=== PATIENT | female | born 1945 | race Caucasian/White ===

== ENCOUNTER 2018-02-05 16:30 | Observation (INO) ==
[2018-02-05] MEDS ORDERED: Orphenadrine Inj 60 MG/2 ML Ampul IM ONE (17:12)
[2018-02-05] MEDS ORDERED: Lidocaine 5% Patch T-DERMAL ONE (17:12)
--- NOTE | 2018-02-05 17:18 | ED ---
HPI General Chief Complaint: Back Pain/Injury Stated Complaint: Back Pain Time Seen by Provider: 02/05/18 16:54 Source: patient Mode of arrival: ambulatory Limitations: no limitations History of Present Illness HPI Narrative: Patient is a 33-year-old female, past medical history significant for kidney transplant in 2011, doing well since then, who presents with complaint of back pain for the last 3-4 days. She states that she has been packing and moving boxes and has noticed back pain to the middle and low back over that time that worsens with movement and twisting motions. She does not believe she has fallen but she is not sure. She denies any numbness, weakness, urinary retention, incontinence, constipation. She denies any recent invasive procedures or fevers. She denies any change in urination. Complaint: Reports back pain and back injury Onset (ago): day(s) Duration: Reports constant Location: Reports lumbar spine and thoracic spine Severity: moderate Quality: Reports aching Radiation: Reports right leg Relieving factors: none Exacerbating factors: movement Context: Reports while lifting and turning/twisting Associated symptoms: Reports denies other symptoms Treatments prior to arrival: Reports acetaminophen Related Data Home Medications Medication Instructions Recorded Confirmed cyclosporine 100 mg PO BID 02/05/18 02/05/18 Allergies Allergy/AdvReac Type Severity Reaction Status Date / Time morphine Allergy Severe Itching Unverified 12/18/16 00:19 Review of Systems ROS: all other systems reviewed are negative [facility] Medical History Medical History Femur fracture (Acute) Osteoarthritis (Acute) Surgical History Surgical History Kidney transplant recipient (Acute) Social History Social History Substance History: No History of Abuse Second Hand Smoke Exposure: No Smoking Status: Never smoker How Often Do You Have a Drink Containing Alcohol: Never Recent Travel in [facility] within the Last 8 Weeks: No Recent Out of Country Travel within the Last 8 Weeks: No Immunization History Tetanus Immunization: <5 Years Hx Influenza Vaccine This Season: Yes Exam Narrative Exam Narrative: GENERAL: Well-appearing female in no acute distress, able to move about the bed without much difficulty SKIN: Focused skin assessment warm/dry. No rashes nor erythema HEAD: Atraumatic. Normocephalic. EYES: Pupils equal and round. No scleral icterus. No injection or drainage. ENT: No nasal bleeding or discharge. Mucous membranes pink and moist. NECK: Trachea midline. No JVD. CARDIOVASCULAR: Regular rate and rhythm. No murmur appreciated. Intact and equal peripheral pulses. Normal cap refill. RESPIRATORY: No accessory muscle use. Clear to auscultation. Breath sounds equal bilaterally. GASTROINTESTINAL: Abdomen soft, non-tender, nondistended. Hepatic and splenic margins not palpable. MUSCULOSKELETAL: No clubbing. No cyanosis. No edema. Kyphoscoliosis present. Palpable muscle spasms along the R thoracic and lumbar spine which reproduce the pain. NEUROLOGICAL: Awake and alert. No obvious cranial nerve deficits. Motor within normal limits. Normal sensation. No ataxia. Normal speech. PSYCHIATRIC: Appropriate mood and affect; insight and judgment normal. Course Reevaluation(s) Reevaluation #1: Patient resting comfortably in the room, states she is feeling slightly better. Time: 20:12 Initial Documented Vital Signs Temperature 97.8 F 02/05/18 16:54 Pulse Rate 83 02/05/18 16:54 Respiratory Rate 18 02/05/18 16:54 Blood Pressure 112/63 02/05/18 16:54 Pulse Oximetry 95 02/05/18 16:54 Last Documented Vital Signs Temperature 97.8 F 02/05/18 16:54 Pulse Rate 53 L 02/05/18 20:57 Respiratory Rate 18 02/05/18 20:57 Blood Pressure 180/87 H 02/05/18 20:57 Pulse Oximetry 96 02/05/18 20:57 Medical Decision Making [facility] Narrative Medical decision making narrative: Patient is a 73-year-old female who presents with complaint of back pain going down her right leg not preceded by trauma and not midline. She is hemodynamically stable with normal vital signs. Labs reveal chronic kidney disease at baseline and no leukocytosis. UA concerning for infection for which she has been started on Keflex. She has been given multiple medications to try and help her pain. She will rest comfortably in the room and fall asleep but then when he try to get her up to walk her she refuses stating that the pain is too intense. CT unremarkable. X-ray of the hip is also unremarkable and does not show acute injury. Medical Screen Exam Complete: Yes Emergency Medical Condition: Yes Differential Diagnosis Differential Diagnosis: Differential diagnosis includes but is not limited to muscle spasm, fracture, strain. Medical Records Medical records reviewed: Yes I reviewed the patient's medical records. Lab Data Lab results reviewed: Yes I reviewed the patient's lab results. Result diagrams: 02/05/18 22:09 02/05/18 22:09 Lab Results 02/05/18 02/05/18 02/05/18 Range/Units 20:06 22:09 22:09 WBC 8.0 (4.0-11.0) th/mm3 RBC 3.65 L (4.00-5.30) mil/mm3 Hgb 10.6 L (11.6-15.3) gm/dL Hct 33.0 L (35.0-46.0) % MCV 90.4 (80.0-100.0) fL MCH 29.0 (27.0-34.0) pg MCHC 32.1 (32.0-36.0) % RDW 18.6 H (11.6-17.2) % Plt Count 233 (150-450) th/mm3 MPV 7.6 (7.0-11.0) fL Neut % (Auto) 72.4 H (16.0-70.0) % Lymph % (Auto) 16.6 (9.0-44.0) % [place] % (Auto) 9.0 H (0.0-8.0) % Eos % (Auto) 1.3 (0.0-4.0) % Baso % (Auto) 0.7 (0.0-2.0) % Neut # (Auto) 5.8 (1.8-7.7) th/mm3 Lymph # (Auto) 1.3 (1.0-4.8) th/mm3 [place] # (Auto) 0.7 (0.0-0.9) th/mm3 Eos # (Auto) 0.1 (0.0-0.4) th/mm3 Baso # (Auto) 0.1 (0.0-0.2) th/mm3 WBC Differential . Differential Comment Auto diff final Sodium 144 (136-145) meq/L Potassium 4.3 (3.5-5.1) meq/L Chloride 105 (98-107) meq/L Carbon Dioxide 28.6 (21.0-32.0) meq/L Anion Gap 10 (5-15) meq/L BUN 38 H (7-18) mg/dL Creatinine 1.42 H (0.50-1.00) mg/dL Estimated GFR 36 L (>89) mL/min Random Glucose 85 (74-106) mg/dL Calcium 10.0 (8.5-10.1) mg/dL Urine Color Yellow (Yellw/Straw) Urine Clarity Hazy H (Clear) Urine pH 5.0 (5.0-8.5) Ur Specific [place] 1.010 (1.002-1.035) Urine Protein Negative (Neg-Trace) mg/dL Urine Glucose (UA) Negative (Negative) mg/dL Urine Ketones Negative (Negative) mg/dL Urine Occult Blood Negative (Negative) Urine Nitrate Negative (Negative) Urine Bilirubin Negative (Negative) Urine Urobilinogen Less than 2 (Less than 2) mg/dL Ur Leukocyte Esterase Small H (Negative) Urine WBC 13 H (0-5) /hpf Ur Squamous Epith Cells <1 (0-5) /hpf Urine Bacteria Rare H (None) /hpf Micro UA Comment Culture indicated Ur Microscopic Review Not Reportable Urine Culture Comments Culture indicated Imaging Data Radiologist's impression: Lumbar Spine CT 02/05/18 17:12 CONCLUSION: 1. No acute fracture or subluxation of the lumbar spine. 2. Mild to moderate, chronic compression deformity of L3 vertebral body. 3. Broad right paracentral/foraminal protrusion with moderate right foraminal stenosis at L3/L4. 4. Mild bilateral foraminal stenosis at L4/L5 and L5/S1. 5. No significant spinal stenosis demonstrated. Thoracic Spine CT 02/05/18 17:12 CONCLUSION: 1. Intact cervical spine. 2. Scoliosis and mild disc centered degenerative changes as above. No high- grade foraminal or spinal stenosis present. Hip X-Ray 02/05/18 21:22 CONCLUSION: 1. No acute abnormality seen of the right hip. 2. Previous nail and rodding of the right femur. Healed proximal shaft fracture. Discharge Plan Physicians Team ED Provider: Connie Reaves Primary Care Provider: Maine Li Rxs /Orders / Referrals /Forms Prescriptions: No Action cyclosporine 100 mg Capsule 100 mg PO BID RF: 0 Discharge Interventions Interventions: Vital Signs Last Done: 02/05/18 20:57 Status ED Status: With Doctor
--- NOTE | 2018-02-05 19:20 | CT ---
EXAM DATE: 02/05/2018 5:21 PM EDT AGE/SEX: 73 years / Female INDICATIONS: Back pain right leg pain CLINICAL DATA: This is the patient's initial encounter. Patient reports that signs and symptoms have been present for 1 day and indicates a pain score of 5/10. MEDICAL/SURGICAL HISTORY: Renal disease. . Kidney transplant orthopedic RADIATION DOSE: 35.24 CTDI (mGy) ; Combined studies COMPARISON: C, CT LUMBAR SPINE W/O CONTRAST, 02/05/2018. . TECHNIQUE: Contiguous axial images were acquired using a multirow detector CT scanner without contra st. Multiplanar reconstruction in the sagittal and coronal planes was performed. Using automated exp osure control and adjustment of the mA and/or kV according to patient size, radiation dose was kept a s low as reasonably achievable to obtain optimal diagnostic quality images. DICOM format image data is available electronically for review and comparison. FINDINGS: There is moderate severity S shaped thoracolumbar curvature. The thoracic portion of the curvature is dextroconvex and centered around T6/T7. There is associated mild foraminal stenosis on the left, inf erior portion of the curvature at T5/T6, T6/T7 and T7/T8. There are no fractures or subluxations. Minimal disc space narrowing with very mild anterior and late ral osseous ridging seen at essentially all levels. CONCLUSION: 1. Intact cervical spine. 2. Scoliosis and mild disc centered degenerative changes as above. No high-grade foraminal or spinal stenosis present. Electronically signed by: Santiago Hernandes MD 02/05/2018 7:19 PM EDT
--- NOTE | 2018-02-05 19:24 | CT ---
EXAM DATE: 02/05/2018 5:21 PM EDT AGE/SEX: 73 years / Female INDICATIONS: Lower back pain right leg pain CLINICAL DATA: This is the patient's initial encounter. Patient reports that signs and symptoms have been present for 1 day and indicates a pain score of 5/10. MEDICAL/SURGICAL HISTORY: Renal disease. . Kidney transplant RADIATION DOSE: 35.24 CTDI (mGy) ; Combined studies COMPARISON: No prior exams available for comparison. TECHNIQUE: Contiguous axial images were acquired with a multirow detector CT scanner without contras t. Multiplanar reconstructions in the sagittal and coronal plane were also performed. Using automate d exposure control and adjustment of the mA and/or kV according to patient size, radiation dose was k ept as low as reasonably achievable to obtain optimal diagnostic quality images. DICOM format image data is available electronically for review and comparison. FINDINGS: There is moderate S shaped thoracolumbar curvature. The lumbar portion of the curvature is levoconvex and centered around L3/L4. There is mild to moderate, chronic inferior endplate and cavity/loss of h eight of the L3 vertebral body. No acute fracture is demonstrated. There is no subluxation. There is mild bilateral facet osteoarthritis at L3/L4 and L4/L5. Moderate bilateral facet osteoarthri tis at L5/S1. Small to moderate, broad right paracentral/foraminal disc protrusion seen at L3/L4 and causes moderat e right foraminal stenosis. There are small, broad posterior disc protrusions at both L4/L5 and L5/S1 causing mild bilateral fora arti stenosis. No significant spinal stenosis demonstrated. CONCLUSION: 1. No acute fracture or subluxation of the lumbar spine. 2. Mild to moderate, chronic compression deformity of L3 vertebral body. 3. Broad right paracentral/foraminal protrusion with moderate right foraminal stenosis at L3/L4. 4. Mild bilateral foraminal stenosis at L4/L5 and L5/S1. 5. No significant spinal stenosis demonstrated. Electronically signed by: Santiago Hernandes MD 02/05/2018 7:23 PM EDT
[2018-02-05] MEDS ORDERED: Acetaminophen 325 MG Tablet PO ONE (20:12)
[2018-02-05 20:31] LABS: Bacteria,Urine Rare /hpf; Bilirubin,Urine Negative (Negative); Clarity,Urine Hazy (Clear); Color,Urine Yellow (Yellw/Straw); Glucose,Urine (UA) Negative (Negative); Leukocyte Esterase,Urine Small (Negative); Nitrite,Urine Negative (Negative); Squamous Epithelial Cell,Urine <1 /hpf (0-5)
[2018-02-05] MEDS ORDERED: Gabapentin 100 MG Capsule PO ONE (21:23)
--- NOTE | 2018-02-05 21:54 | XR ---
EXAM DATE: 02/05/2018 9:22 PM EDT AGE/SEX: 73 years / Female INDICATIONS: Right hip pain with no known injury. CLINICAL DATA: This is the patient's initial encounter. Patient reports that signs and symptoms have been present for 1 week and indicates a pain score of 7/10. MEDICAL/SURGICAL HISTORY: None. . ORIF right hip. COMPARISON: [facility] [place] (1 VW[place] 07/16/2011. . FINDINGS: There is no acute fracture or subluxation of the right hip. No significant joint space narrowing. No acute soft tissue abnormality demonstrated. Patient is status post proximal femoral nailing and rodding. There is a proximal shaft fracture which is solidly healed in near-anatomic alignment. CONCLUSION: 1. No acute abnormality seen of the right hip. 2. Previous nail and rodding of the right femur. Healed proximal shaft fracture. Electronically signed by: Santiago Hernandes MD 02/05/2018 9:52 PM EDT
[2018-02-05 22:31] LABS: Baso # (Auto) 0.1 th/mm3 (0.0-0.2); Baso % (Auto) 0.7 % (0.0-2.0); Eos # (Auto) 0.1 th/mm3 (0.0-0.4); Eos % (Auto) 1.3 % (0.0-4.0); Hemoglobin 10.6 gm/dL (11.6-15.3); Lymph # (Auto) 1.3 th/mm3 (1.0-4.8); Lymph % (Auto) 16.6 % (9.0-44.0); Mean Corpuscular HGB Conc 32.1 % (32.0-36.0); Mean Corpuscular Volume 90.4 fL (80.0-100.0); Mean Platelet Volume 7.6 fL (7.0-11.0); Mono # (Auto) 0.7 th/mm3 (0.0-0.9); Neut # (Auto) 5.8 th/mm3 (1.8-7.7); Neut % (Auto) 72.4 % (16.0-70.0); Platelet Count 233 th/mm3 (150-450); Red Blood Count 3.65 mil/mm3 (4.00-5.30); Red Cell Distribution Width 18.6 % (11.6-17.2)
[2018-02-05 22:47] LABS: Carbon Dioxide 28.6 meq/L (21.0-32.0); Potassium 4.3 meq/L (3.5-5.1)
[2018-02-05] MEDS ORDERED: fentaNYL Citrate Inj 100 MCG/2 ML Ampul IV.PUSH ONE (23:07)
[2018-02-06] MEDS ORDERED: Bisacodyl 10 MG Supp RECTAL PRN (00:03)
[2018-02-06] MEDS ORDERED: Acetaminophen 325 MG Tablet PO PRN (00:03)
--- NOTE | 2018-02-06 00:11 | P.HP ---
History of Present Illness Service: [facility] Primary Care Physician: Maine Li MD History of Present Illness: 73-year-old female with a past medical history significant for chronic kidney disease, history of renal transplant, hypertension and hyperlipidemia presents to the emergency department for evaluation of back pain. The patient reports that she has been moving from her current residence and has been packing boxes and lifting and carrying heavy objects. She states she has had severe lower back pain that has worsened to the point where she cannot bear weight on her right leg. She is able to move her extremities without difficulty and has 5/5 strength throughout in the bilateral lower extremities. She denies any bowel or bladder incontinence. No chest pain or shortness of breath. No abdominal pain. No nausea/vomiting/diarrhea. No lateralizing signs/symptoms other than pain. No fever/chills. Review of Systems All other systems reviewed negative except as stated in HPI [facility] - History History Provided By: Patient - Medical History Medical History: Medical History (Last Updated 02/06/18 @ 00:08 by Pamela Scott MD) Femur fracture Hyperlipidemia Hypertension Osteoarthritis - Surgical History Surgical History: Surgical History (Last Reviewed 02/06/18 @ 00:08 by Pamela Scott MD) Kidney transplant recipient - Family History Family History: Family History (Last Updated 02/06/18 @ 00:09 by Pamela Scott MD) Other Family history normal - Tobacco History Second Hand Smoke Exposure: No Smoking Status: Never smoker - Alcohol History How Often Do You Have a Drink Containing Alcohol: Never - Substance Use History Substance History: No History of Abuse - Travel History Recent Travel in the [place] Within the Last 8 Weeks: No Recent Travel Out of the Country Within the Last 8 Weeks: No - Immunization History Tetanus Immunization: <5 Years Hx Influenza Vaccine This Season: Yes Medications and Allergies Active Medications: Active Medications Acetaminophen (Tylenol) 650 mg PO Q4H PRN PRN Reason: Temp > 100.4 Al Hydroxide/Mg Hydroxide (Milk Of Magnesia Liq) 30 ml PO Q12H PRN PRN Reason: Mild Constipation Bisacodyl (Dulcolax Supp) 10 mg RECTAL DAILY PRN PRN Reason: SEVERE CONSITIPATION Heparin Sodium (Porcine) (Heparin Inj) 5,000 units SQ Q8H KERLINE Ketorolac Tromethamine (Toradol Inj) 15 mg IV.PUSH Q6H PRN PRN Reason: pain 6-10 Lactulose (Lactulose Liq) 30 ml PO DAILY PRN PRN Reason: SEVERE CONSITIPATION Nitrofurantoin Macrocrystals (Macrobid) 100 mg PO BIDPC KERLINE Ondansetron HCl (Zofran Inj) 4 mg IV.PUSH Q6H PRN PRN Reason: NAUSEA OR VOMITING Patch Removal (Remove Old Patch) 1 each T-DERMAL HS KERLINE Last Admin: 02/05/18 23:16 Dose: Not Given Senna/Docusate Sodium (Elvia-Colace) 1 tab PO BID [facility] Sennosides (Senokot) 17.2 mg PO Q12H PRN PRN Reason: Moderate Constipation Allergies Allergy/AdvReac Type Severity Reaction Status Date / Time morphine Allergy Severe Itching Unverified 12/18/16 00:19 Home Medications Medication Instructions Recorded Confirmed Type cyclosporine 100 mg PO BID 02/05/18 02/05/18 History prednisone 2.5 mg PO DAILY 02/05/18 02/05/18 History Exam Vital signs: Vital Signs 02/05/18 16:54 02/05/18 20:57 02/05/18 23:48 Temperature 97.8 F Pulse Rate 83 53 L 74 Respiratory Rate 18 18 18 Blood Pressure 112/63 180/87 H 177/82 H Pulse Oximetry 95 96 96 Intake & Output 02/05/18 02/05/18 02/06/18 06:59 18:59 06:59 Weight 72.575 kg Narrative: Gen.: No acute distress Head: Normocephalic. Atraumatic. EENT: Pupils equal round and reactive to light. Nose without drainage. Airway intact. Throat without injection. Cardiovascular: Regular rate and rhythm. No murmurs, rubs or gallops. Respiratory: Lungs clear to auscultation bilaterally. No wheezes or rhonchi. Abdomen: Soft, nontender, nondistended. No peritoneal signs. Musculoskeletal: No gross deformities. No edema. Skin: No obvious rashes or erythema. Neuro: Sensory and motor grossly intact. Cranial nerves II through XII grossly intact. 5/5 bilateral lower extremity strength while lying in bed however patient refuses to stand secondary to pain. Results - Labs CBC & Chem 7: 02/05/18 22:09 02/05/18 22:09 Labs: Laboratory Results - last 24 hr 02/05/18 02/05/18 02/05/18 20:06 22:09 22:09 WBC 8.0 RBC 3.65 L Hgb 10.6 L Hct 33.0 L MCV 90.4 MCH 29.0 MCHC 32.1 RDW 18.6 H Plt Count 233 MPV 7.6 Neut % (Auto) 72.4 H Lymph % (Auto) 16.6 [place] % (Auto) 9.0 H Eos % (Auto) 1.3 Baso % (Auto) 0.7 Neut # (Auto) 5.8 Lymph # (Auto) 1.3 [place] # (Auto) 0.7 Eos # (Auto) 0.1 Baso # (Auto) 0.1 WBC Differential . Differential Comment Auto diff final Sodium 144 Potassium 4.3 Chloride 105 Carbon Dioxide 28.6 Anion Gap 10 BUN 38 H Creatinine 1.42 H Estimated GFR 36 L Random Glucose 85 Calcium 10.0 Urine Color Yellow Urine Clarity Hazy H Urine pH 5.0 Ur Specific [place] 1.010 Urine Protein Negative Urine Glucose (UA) Negative Urine Ketones Negative Urine Occult Blood Negative Urine Nitrate Negative Urine Bilirubin Negative Urine Urobilinogen Less than 2 Ur Leukocyte Esterase Small H Urine WBC 13 H Ur Squamous Epith Cells <1 Urine Bacteria Rare H Micro UA Comment Culture indicated Ur Microscopic Review Not Reportable Urine Culture Comments Culture indicated - Imaging Impressions Lumbar Spine CT 02/05/18 17:12 CONCLUSION: 1. No acute fracture or subluxation of the lumbar spine. 2. Mild to moderate, chronic compression deformity of L3 vertebral body. 3. Broad right paracentral/foraminal protrusion with moderate right foraminal stenosis at L3/L4. 4. Mild bilateral foraminal stenosis at L4/L5 and L5/S1. 5. No significant spinal stenosis demonstrated. Thoracic Spine CT 02/05/18 17:12 CONCLUSION: 1. Intact cervical spine. 2. Scoliosis and mild disc centered degenerative changes as above. No high- grade foraminal or spinal stenosis present. Hip X-Ray 02/05/18 21:22 CONCLUSION: 1. No acute abnormality seen of the right hip. 2. Previous nail and rodding of the right femur. Healed proximal shaft fracture. Caprini VTE Risk Assessment Caprini VTE Risk Assessment: Moderate/High Risk (score >= 2) Caprini Risk Assessment Model: Point Value = 1 Point Value = 2 Point Value = 3 Point Value = 5 Age 41-60 Minor surgery BMI > 25 kg/m2 Swollen legs Varicose veins or History of unexplained or recurrent spontaneous Oral contraceptives or hormone replacement Sepsis (< 1 month) Serious lung disease, including pneumonia (< 1 month) Abnormal pulmonary function Acute myocardial infarction Congestive heart failure (< 1 month) History of inflammatory bowel disease Medical patient at bed rest Age 61-74 Arthroscopic surgery Major open surgery (> 45 min) Laparoscopic surgery (> 45 min) Malignancy Confined to bed (> 72 hours) Immobilizing plaster cast Central venous access Age >= 75 History of VTE Family history of VTE Factor V Leiden Prothrombin [id number] Lupus anticoagulant Anticardiolipin antibodies Elevated serum homocysteine Heparin-induced thrombocytopenia Other congenital or acquired thrombophilia Stroke (< 1 month) Elective arthroplasty Hip, pelvis, or leg fracture Acute spinal cord injury (< 1 month) Prophylaxis Regimen: Total Risk Factor Score Risk Level Prophylaxis Regimen 0-1 Low Early ambulation 2 Moderate Order ONE of the following: *Sequential Compression Device (SCD) *Heparin 5000 units SQ BID 3-4 Higher Order ONE of the following medications: *Heparin 5000 units SQ TID *Enoxaparin/Lovenox 40 mg SQ daily (WT < 150 kg, CrCl > 30 mL/min) *Enoxaparin/Lovenox 30 mg SQ daily (WT < 150 kg, CrCl > 10-29 mL/min) *Enoxaparin/Lovenox 30 mg SQ BID (WT < 150 kg, CrCl > 30 mL/min) AND/OR *Sequential Compression Device (SCD) 5 or more Highest Order ONE of the following medications: *Heparin 5000 units SQ TID (Preferred with Epidurals) *Enoxaparin/Lovenox 40 mg SQ daily (WT < 150 kg, CrCl > 30 mL/min) *Enoxaparin/Lovenox 30 mg SQ daily (WT < 150 kg, CrCl > 10-29 mL/min) *Enoxaparin/Lovenox 30 mg SQ BID (WT < 150 kg, CrCl > 30 mL/min) AND *Sequential Compression Device (SCD) Assessment and Plan - Plan Assessment/plan: 1. Back pain Suspect secondary to overuse from moving Toradol Physical therapy consulted CT of the lumbar and thoracic spine without acute process 2. Urinary tract infection Macrobid 3. Chronic kidney disease Creatinine 1.42, baseline 4. History of renal transplantation Continue home immunosuppression 5. Hypertension/hyperlipidemia Continue home medications once reconciled FEN Heart healthy diet Electrolytes: Monitor and replete as needed Heparin
[2018-02-06] MEDS: Heparin - SQ 10,000 UNITS/ML Vial SQ SCH ×3 (01:43→15:38)
[2018-02-06] MEDS: Nitrofurantoin Monohydrate-Macrocrystal 100 MG Capsule PO SCH ×3 (01:43→18:14)
[2018-02-06] MEDS: Ketorolac Inj 30 MG/ML (IVP) Vial IV.PUSH PRN ×3 (03:23→15:37)
[2018-02-06] MEDS: predniSONE 5 MG Tablet PO SCH (09:29)
[2018-02-06] MEDS: Senna/Docusate Sodium 8.6/50 MG Tablet PO SCH ×2 (09:31→20:21)
--- NOTE | 2018-02-06 09:53 | P.PN ---
Subjective Interval history: Follow-up for lumbar strain, intractable back pain. Patient reports feeling slightly better today, however still with significant diffuse lumbar pain with radiation into the right buttocks and right anterior thigh. She describes the pain as feeling very tight with persistent spasms. She feels the Flexeril will help with her spasms, and just tried her first dose. She has not yet attempted ambulation today. She continues to deny any urinary or bowel incontinence. Denies any fevers or chills. She does not feel ready to go home as she feels she still cannot ambulate. Awaiting PT evaluation. Physical Exam Vital signs: Vital Signs 02/05/18 16:54 02/05/18 20:57 02/05/18 23:48 Temperature 97.8 F Pulse Rate 83 53 L 74 Respiratory Rate 18 18 18 Blood Pressure 112/63 180/87 H 177/82 H Pulse Oximetry 95 96 96 02/06/18 04:00 02/06/18 07:31 02/06/18 08:00 Temperature 97.8 F 98 F Pulse Rate 63 62 Respiratory Rate 16 16 22 Blood Pressure 168/73 H 176/81 H Pulse Oximetry 96 96 Intake & Output 02/05/18 02/06/18 02/06/18 18:59 06:59 18:59 Weight 72.575 kg 72.575 kg Other: Date of Last Bowel Movement 02/05/18 Weight On Admission 72.58 kg Narrative: GENERAL: Well-nourished, well-developed pleasant elderly female patient in [facility]. SKIN: Warm and dry. No rash. HEENT: Normocephalic. Atraumatic. Pupils equal and round. Mucous membranes pink and moist. NECK: Supple. Trachea midline. CARDIOVASCULAR: Regular rate and rhythm. No murmur appreciated. RESPIRATORY: No accessory muscle use. Clear to auscultation. Breath sounds equal bilaterally. GASTROINTESTINAL: Abdomen soft, non-tender, nondistended. Normoactive bowel sounds x4. MUSCULOSKELETAL: No obvious deformities. Extremities without clubbing, cyanosis , or edema. Diffuse lumbar paraspinous muscle tenderness to palpation, without any lumbar bony point tenderness. Cervical and thoracic spine nontender. NEUROLOGICAL: Awake and alert. No obvious cranial nerve deficits. 5/5 strength bilateral upper and lower extremities, although right hip flexion against resistance elicits pain. Normal speech. PSYCHIATRIC: Appropriate mood and affect; insight and judgment normal. Results - Labs CBC & Chem 7: 02/05/18 22:09 02/05/18 22:09 Laboratory Results - last 24 hr 02/05/18 02/05/18 02/05/18 20:06 22:09 22:09 WBC 8.0 RBC 3.65 L Hgb 10.6 L Hct 33.0 L MCV 90.4 MCH 29.0 MCHC 32.1 RDW 18.6 H Plt Count 233 MPV 7.6 Neut % (Auto) 72.4 H Lymph % (Auto) 16.6 [place] % (Auto) 9.0 H Eos % (Auto) 1.3 Baso % (Auto) 0.7 Neut # (Auto) 5.8 Lymph # (Auto) 1.3 [place] # (Auto) 0.7 Eos # (Auto) 0.1 Baso # (Auto) 0.1 WBC Differential . Differential Comment Auto diff final Sodium 144 Potassium 4.3 Chloride 105 Carbon Dioxide 28.6 Anion Gap 10 BUN 38 H Creatinine 1.42 H Estimated GFR 36 L Random Glucose 85 Calcium 10.0 Urine Color Yellow Urine Clarity Hazy H Urine pH 5.0 Ur Specific [place] 1.010 Urine Protein Negative Urine Glucose (UA) Negative Urine Ketones Negative Urine Occult Blood Negative Urine Nitrate Negative Urine Bilirubin Negative Urine Urobilinogen Less than 2 Ur Leukocyte Esterase Small H Urine WBC 13 H Ur Squamous Epith Cells <1 Urine Bacteria Rare H Micro UA Comment Culture indicated Ur Microscopic Review Not Reportable Urine Culture Comments Culture indicated - Imaging Impressions Lumbar Spine CT 02/05/18 17:12 CONCLUSION: 1. No acute fracture or subluxation of the lumbar spine. 2. Mild to moderate, chronic compression deformity of L3 vertebral body. 3. Broad right paracentral/foraminal protrusion with moderate right foraminal stenosis at L3/L4. 4. Mild bilateral foraminal stenosis at L4/L5 and L5/S1. 5. No significant spinal stenosis demonstrated. Thoracic Spine CT 02/05/18 17:12 CONCLUSION: 1. Intact cervical spine. 2. Scoliosis and mild disc centered degenerative changes as above. No high- grade foraminal or spinal stenosis present. Hip X-Ray 02/05/18 21:22 CONCLUSION: 1. No acute abnormality seen of the right hip. 2. Previous nail and rodding of the right femur. Healed proximal shaft fracture. Assessment and Plan - Plan 73-year-old female with a past medical history significant for chronic kidney disease, history of renal transplant, hypertension and hyperlipidemia presents to the emergency department for evaluation of back pain. Lumbar strain/intractable back pain/inability to ambulate: Acute, suspect secondary to overuse, patient recently lifting and moving boxes, process of relocating her home. -CT thoracic reviewed, shows scoliosis and mild disc centered degenerative changes as above. No high-grade foraminal or spinal stenosis present. -CT lumbar show no acute fracture, mild-moderate chronic compression deformity of L3, Broad right paracentral/foraminal protrusion with moderate right foraminal stenosis at L3/L4, Mild bilateral foraminal stenosis at L4/L5 and L5/S1. No significant spinal stenosis demonstrated. -Right hip xray reviewed, no acute findings, previous nail/rodding of right femur -Continue anti-inflammatories with IV Toradol -Continue muscle relaxer with Flexeril as needed -K thermia pad -Physical therapy consulted -Instructed the patient to f/up with her orthopedic physician Dr. Eduardo if symptoms persist after discharge UTI: UA with leuks and WBCs -continue Macrobid -monitor urine culture CKD stage III with hx of renal transplant: chronic. Cr 1.42, appears at baseline -continue patient's cyclosporine and prednisone -avoid nephrotoxins Hypertension/Hyperlipidemia: chronic -update home med rec, restart meds as appropriate -monitor BP, add antihypertensives as needed DVT Prophylaxis: Heparin sq Discharge Planning: Not yet ready for discharge. Await PT eval.
[2018-02-06] MEDS ORDERED: Sodium Chloride 0.9% 2 ML Flush PRN IV.FLUSH (23:44)
[2018-02-07] MEDS: Heparin - SQ 10,000 UNITS/ML Vial SQ SCH ×3 (01:07→17:17)
[2018-02-07 08:01] LABS: Baso # (Auto) 0.1 th/mm3 (0.0-0.2); Baso % (Auto) 0.9 % (0.0-2.0); Eos # (Auto) 0.2 th/mm3 (0.0-0.4); Eos % (Auto) 2.5 % (0.0-4.0); Hematocrit 32.2 % (35.0-46.0); Hemoglobin 10.7 gm/dL (11.6-15.3); Lymph # (Auto) 1.7 th/mm3 (1.0-4.8); Lymph % (Auto) 22.3 % (9.0-44.0); Mean Corpuscular HGB Conc 33.3 % (32.0-36.0); Mean Corpuscular Hemoglobin 29.6 pg (27.0-34.0); Mean Corpuscular Volume 88.8 fL (80.0-100.0); Mono # (Auto) 0.9 th/mm3 (0.0-0.9); Mono % (Auto) 11.5 % (0.0-8.0); Neut # (Auto) 4.7 th/mm3 (1.8-7.7); Neut % (Auto) 62.8 % (16.0-70.0); Platelet Count 229 th/mm3 (150-450); Red Blood Count 3.62 mil/mm3 (4.00-5.30); Red Cell Distribution Width 18.3 % (11.6-17.2); White Blood Count 7.5 th/mm3 (4.0-11.0)
[2018-02-07 08:29] LABS: Carbon Dioxide 25.2 meq/L (21.0-32.0); Potassium 4.3 meq/L (3.5-5.1)
[2018-02-07] MEDS: predniSONE 5 MG Tablet PO SCH (08:37)
[2018-02-07] MEDS: Nitrofurantoin Monohydrate-Macrocrystal 100 MG Capsule PO SCH (08:37)
[2018-02-07] MEDS: Senna/Docusate Sodium 8.6/50 MG Tablet PO SCH ×2 (08:39→21:07)
[2018-02-07] MEDS: Sodium Chloride 0.9% 2 ML Flush BID IV.FLUSH SCH ×2 (08:39→21:09)
[2018-02-07 08:48] LABS: Calcium 9.5 mg/dL (8.5-10.1)
--- NOTE | 2018-02-07 10:28 | P.PN ---
Subjective Interval history: Follow-up for lumbar strain, inability to ambulate. Patient reports slowly feeling better today. States she was able to ambulate to the restroom with her walker, however did have significant pain and required pain medication. She still does not feel ready going home. Denies any weakness of her lower extremities, just difficulty ambulating secondary to pain. Denies any incontinence. Denies any other new medical complaints at this time. Physical Exam Vital signs: Vital Signs 02/06/18 12:00 02/06/18 16:00 02/06/18 19:49 Temperature 98.1 F 98 F 98.0 F Pulse Rate 66 64 66 Respiratory Rate 22 18 16 Blood Pressure 144/67 H 122/80 166/78 H Pulse Oximetry 97 96 96 02/07/18 00:39 02/07/18 04:00 02/07/18 08:00 Temperature 98.2 F 98.3 F 97.7 F Pulse Rate 46 L 51 L 65 Respiratory Rate 16 16 16 Blood Pressure 149/68 H 143/60 H 141/97 H Pulse Oximetry 95 95 96 Intake & Output 02/06/18 02/07/18 02/07/18 18:59 06:59 18:59 Output Total 300 / 300 Balance -300 / -300 Output: Urine 300 / 300 Other: # Voids 1 Date of Last Bowel Movement 02/05/18 02/07/18 Narrative: GENERAL: Well-nourished, well-developed pleasant elderly female patient in [facility]. SKIN: Warm and dry. No rash. HEENT: Normocephalic. Atraumatic. Pupils equal and round. Mucous membranes pink and moist. CARDIOVASCULAR: Regular rate and rhythm. No murmur appreciated. RESPIRATORY: No accessory muscle use. Clear to auscultation. Breath sounds equal bilaterally. GASTROINTESTINAL: Abdomen soft, non-tender, nondistended. Normoactive bowel sounds x4. MUSCULOSKELETAL: No obvious deformities. Extremities without clubbing, cyanosis , or edema. Diffuse lumbar paraspinous muscle tenderness to palpation, without any lumbar bony point tenderness. Cervical and thoracic spine nontender. NEUROLOGICAL: Awake and alert. No obvious cranial nerve deficits. 5/5 strength bilateral upper and lower extremities, although right hip flexion against resistance elicits pain. Normal speech. PSYCHIATRIC: Appropriate mood and affect; insight and judgment normal. Results - Labs CBC & Chem 7: 02/07/18 07:05 02/07/18 07:05 Laboratory Results - last 24 hr 02/07/18 02/07/18 07:05 07:05 WBC 7.5 RBC 3.62 L Hgb 10.7 L Hct 32.2 L MCV 88.8 MCH 29.6 MCHC 33.3 RDW 18.3 H Plt Count 229 MPV 8.0 Neut % (Auto) 62.8 Lymph % (Auto) 22.3 [place] % (Auto) 11.5 H Eos % (Auto) 2.5 Baso % (Auto) 0.9 Neut # (Auto) 4.7 Lymph # (Auto) 1.7 [place] # (Auto) 0.9 Eos # (Auto) 0.2 Baso # (Auto) 0.1 WBC Differential . Differential Comment Auto diff final Sodium 140 Potassium 4.3 Chloride 105 Carbon Dioxide 25.2 Anion Gap 10 BUN 52 H Creatinine 1.89 H Estimated GFR 26 L Random Glucose 84 Calcium 9.5 Microbiology 02/05/18 20:06 Clean Catch Urine Urine Culture - Preliminary Immature growth - reincubate - Imaging Lumbar Spine CT 02/05/18 17:12 CONCLUSION: 1. No acute fracture or subluxation of the lumbar spine. 2. Mild to moderate, chronic compression deformity of L3 vertebral body. 3. Broad right paracentral/foraminal protrusion with moderate right foraminal stenosis at L3/L4. 4. Mild bilateral foraminal stenosis at L4/L5 and L5/S1. 5. No significant spinal stenosis demonstrated. Thoracic Spine CT 02/05/18 17:12 CONCLUSION: 1. Intact cervical spine. 2. Scoliosis and mild disc centered degenerative changes as above. No high- grade foraminal or spinal stenosis present. Hip X-Ray 02/05/18 21:22 CONCLUSION: 1. No acute abnormality seen of the right hip. 2. Previous nail and rodding of the right femur. Healed proximal shaft fracture. Assessment and Plan - Plan 73-year-old female with a past medical history significant for chronic kidney disease, history of renal transplant, hypertension and hyperlipidemia presents to the emergency department for evaluation of back pain. Lumbar strain/intractable back pain/inability to ambulate: Acute, suspect secondary to overuse, patient recently lifting and moving boxes, process of relocating her home. -CT thoracic reviewed, shows scoliosis and mild disc centered degenerative changes as above. No high-grade foraminal or spinal stenosis present. -CT lumbar show no acute fracture, mild-moderate chronic compression deformity of L3, Broad right paracentral/foraminal protrusion with moderate right foraminal stenosis at L3/L4, Mild bilateral foraminal stenosis at L4/L5 and L5/S1. No significant spinal stenosis demonstrated. -Right hip xray reviewed, no acute findings, previous nail/rodding of right femur -Avoid NSAIDs with history of renal transplant -Continue muscle relaxer with Flexeril as needed -Pain control with tramadol as needed -K thermia pad -Physical therapy consulted, recommending rehab -Instructed the patient to f/up with her orthopedic physician Dr. Eduardo if symptoms persist after discharge UTI: UA with leuks and WBCs -continue Macrobid [place] [address] [place] mixed pranav, probable contaminants -Will discontinue antibiotics, patient asymptomatic CKD stage III with hx of renal transplant: chronic. Cr 1.42, appears at baseline -continue patient's cyclosporine and prednisone -avoid nephrotoxins Hypertension/Hyperlipidemia: chronic -update home med rec, restart meds as appropriate -monitor BP, add antihypertensives as needed DVT Prophylaxis: Heparin sq Discharge Planning: Not yet ready for discharge. PT recommending rehab however difficulty with placement. Continue daily PT. Patient improving. Hoping to send home with [facility] if rehab is not approved, however not safe discharge at this time as patient has multiple stairs to get into home.
--- NOTE | 2018-02-07 10:31 | P.DCO ---
- Diagnosis (1) Inability to ambulate due to multiple joints Status: Acute (2) History of renal transplant Status: Acute (3) Strain of lumbar region Status: Acute (4) Intractable back pain Status: Acute - Physical Therapy Order: Evaluate and treat, Improve ambulation, Strength and gait training - Home Health Nursing Order: Medical education, Signs/symptoms of disease process, Nursing assessment with vital signs - Case Management Consult Yes - Certification I have seen patient Alma Vance September on 02/07/18. My clinical findings support the need for the requested home health care services because: Limited mobility due to disease progression, Deconditioned with increased weakness, Limited ability to care for self, High risk of falls I certify that my clinical findings support that this patient is homebound because: Unsteady gait/balance, Unsafe to leave home unassisted, Unable to use public transportation
[2018-02-08] MEDS: Heparin - SQ 10,000 UNITS/ML Vial SQ SCH ×3 (00:36→17:34)
[2018-02-08] MEDS: Sodium Chloride 0.9% 2 ML Flush BID IV.FLUSH SCH ×2 (08:13→22:54)
[2018-02-08] MEDS: predniSONE 5 MG Tablet PO SCH (08:13)
[2018-02-08] MEDS: Senna/Docusate Sodium 8.6/50 MG Tablet PO SCH ×2 (08:14→22:54)
--- NOTE | 2018-02-08 09:17 | P.PN ---
Subjective Interval history: Follow-up for lumbar strain, inability to ambulate. Patient reports mild improvement compared to yesterday. She reports continued diffuse low back pain with radiation into the right buttocks and around to the right anterior thigh. She is concerned about her right hip/femur with her history of hardware placement. She states most of her pain is now into her right leg. She is still very concerned about going home as she feels she would not be able to make it up 20+ stairs to get into her apartment. She states she has been ambulating more here in the hospital, however still very painful. She has no other new medical complaints. Physical Exam Vital signs: Vital Signs 02/07/18 12:00 02/07/18 16:00 02/07/18 19:53 Temperature 98.1 F 98.3 F 98.5 F Pulse Rate 61 65 70 Respiratory Rate 16 16 18 Blood Pressure 146/77 H 154/86 H 151/75 H Pulse Oximetry 96 95 02/07/18 23:26 02/08/18 04:00 02/08/18 07:46 Temperature 98 F 97.9 F 97.8 F Pulse Rate 55 L 56 L 61 Respiratory Rate 18 18 16 Blood Pressure 133/74 112/69 132/71 Pulse Oximetry 94 L 94 L 93 L Intake & Output 02/07/18 02/08/18 02/08/18 18:59 06:59 18:59 Intake Total 570 / 570 Output Total 1200 / 1200 Balance -630 / -630 Intake: Oral 570 / 570 Output: Urine 1200 / 1200 Other: Date of Last Bowel Movement 02/07/18 02/07/18 Narrative: GENERAL: Well-nourished, well-developed pleasant elderly female patient in [facility]. SKIN: Warm and dry. No rash. HEENT: Normocephalic. Atraumatic. Pupils equal and round. Mucous membranes pink and moist. CARDIOVASCULAR: Regular rate and rhythm. No murmur appreciated. RESPIRATORY: No accessory muscle use. Clear to auscultation. Breath sounds equal bilaterally. GASTROINTESTINAL: Abdomen soft, non-tender, nondistended. Normoactive bowel sounds x4. MUSCULOSKELETAL: No obvious deformities. Extremities without clubbing, cyanosis , or edema. Diffuse lumbar paraspinous muscle tenderness to palpation, without any cervical/thoracic/lumbar bony point tenderness. NEUROLOGICAL: Awake and alert. No obvious cranial nerve deficits. 5/5 strength bilateral upper and lower extremities, although right hip flexion against resistance elicits pain. Normal speech. PSYCHIATRIC: Appropriate mood and affect; insight and judgment normal. Results - Labs CBC & Chem 7: 02/07/18 07:05 02/07/18 07:05 Microbiology 02/05/18 20:06 Clean Catch Urine Urine Culture - Final 50-100,000 cfu/mL mixed pranav (probable contaminants ) Assessment and Plan - Plan 73-year-old female with a past medical history significant for chronic kidney disease, history of renal transplant, hypertension and hyperlipidemia presents to the emergency department for evaluation of back pain. Lumbar strain/intractable back pain/inability to ambulate: Acute, suspect secondary to overuse, patient recently lifting and moving boxes, process of relocating her home. -CT thoracic reviewed, shows scoliosis and mild disc centered degenerative changes as above. No high-grade foraminal or spinal stenosis present. -CT lumbar show no acute fracture, mild-moderate chronic compression deformity of L3, Broad right paracentral/foraminal protrusion with moderate right foraminal stenosis at L3/L4, Mild bilateral foraminal stenosis at L4/L5 and L5/S1. No significant spinal stenosis demonstrated. -Right hip xray reviewed, no acute findings, previous nail/rodding of right femur -Avoid NSAIDs with history of renal transplant -Continue muscle relaxer with Flexeril as needed -Pain control with tramadol as needed -K thermia pad -Physical therapy consulted, recommending rehab -Instructed the patient to f/up with her orthopedic physician Dr. Eduardo if symptoms persist after discharge UTI: UA with leuks and WBCs -continue Macrobid [place] [address]00 K mixed pranav, probable contaminants -Will discontinue antibiotics, patient asymptomatic CKD stage III with hx of renal transplant: chronic. Cr 1.42, appears at baseline -continue patient's cyclosporine and prednisone -avoid nephrotoxins Hypertension/Hyperlipidemia: chronic -update home med rec, restart meds as appropriate -monitor BP, add antihypertensives as needed DVT Prophylaxis: Heparin sq Discharge Planning: Not yet ready for discharge. PT recommending rehab however difficulty with placement. Continue daily PT. Patient improving. Hoping to send home with [facility] if rehab is not approved, however not safe discharge at this time as patient has multiple stairs to get into home.
[2018-02-08] MEDS: predniSONE 20 MG Tablet PO SCH (09:24)
--- NOTE | 2018-02-08 19:05 | CT ---
EXAM DATE: 02/08/2018 6:15 PM EDT AGE/SEX: 73 years / Female INDICATIONS: Unable to ambulate. CLINICAL DATA: This is the patient's initial encounter. Patient reports that signs and symptoms have been present for 3 days and indicates a pain score of 8/10. MEDICAL/SURGICAL HISTORY: Hypertension. Osteoarthritis . Bilateral femur rods RADIATION DOSE: 16.50 CTDI (mGy) COMPARISON: [facility] [place], HIP RIGHT 2V, 02/05/2018. . TECHNIQUE: Multiple contiguous axial images were acquired using a multirow detector CT scanner witho ut contrast. Multiplanar reconstruction was performed in the sagittal and coronal planes. Using aut omated exposure control and adjustment of the mA and/or kV according to patient size, radiation dose was kept as low as reasonably achievable to obtain optimal diagnostic quality images. DICOM format i mage data is available electronically for review and comparison. FINDINGS: There is a intramedullary linh and nail currently in place. There is an old healed fracture involving the shaft of the femur. The bony structures are grossly intact. No acute fracture is demonstrated. Th ere is good alignment at the hip joint. No significant arthropathy is demonstrated. The soft tissues are grossly unremarkable. CONCLUSION: 1. Old healed fracture through the midshaft of the right femur. 2. The hardware is grossly intact. 3. Otherwise, unremarkable examination. Electronically signed by: Binh Ramsay MD 02/08/2018 7:03 PM EDT
[2018-02-08] MEDS ORDERED: Metoprolol Tartrate 100 MG Tablet PO ONE (20:37)
[2018-02-09] MEDS: Heparin - SQ 10,000 UNITS/ML Vial SQ SCH ×3 (00:35→17:23)
--- NOTE | 2018-02-09 10:18 | P.PN ---
Subjective Interval history: Follow-up for lumbar strain, radiculopathy, inability to ambulate. Patient reports minimal improvement overnight, still with pain that starts in the right lumbar region with radiation into the right buttocks and around to the right anterior thigh. She is ambulating with physical therapy, however still very painful. She states she does not like taking the tramadol because it makes her go to sleep. She does feel like she is very slowly improving with the Flexeril and prednisone. She is very interested in going to [facility] if possible. She is very concerned about going home as she feels she would not be able to make it up her 20+ stairs into her home. Physical Exam Vital signs: Vital Signs 02/08/18 11:29 02/08/18 15:54 02/08/18 19:10 Temperature 97.7 F 98.6 F Pulse Rate 65 60 Respiratory Rate 16 16 16 Blood Pressure 135/69 149/70 H 181/87 H Pulse Oximetry 95 93 L 94 L 02/09/18 00:00 02/09/18 01:20 02/09/18 03:40 Temperature 98.2 F 98.3 F Pulse Rate 70 60 82 Respiratory Rate 16 15 16 Blood Pressure 172/83 H 177/75 H 147/71 H Pulse Oximetry 95 95 96 02/09/18 07:36 Temperature 97.9 F Pulse Rate 84 Respiratory Rate 20 Blood Pressure 158/81 H Pulse Oximetry 96 Intake & Output 02/08/18 02/09/18 02/09/18 18:59 06:59 18:59 Intake Total 570 / 570 360 / 360 Output Total 1200 / 1200 900 / 900 600 / 600 Balance -630 / -630 -900 / -900 -240 / -240 Intake: Oral 570 / 570 360 / 360 Output: Urine 1200 / 1200 900 / 900 600 / 600 Other: Date of Last Bowel Movement 02/07/18 02/08/18 Narrative: GENERAL: Well-nourished, well-developed pleasant elderly female patient in [facility]. SKIN: Warm and dry. No rash. HEENT: Normocephalic. Atraumatic. Pupils equal and round. Mucous membranes pink and moist. CARDIOVASCULAR: Regular rate and rhythm. No murmur appreciated. RESPIRATORY: No accessory muscle use. Clear to auscultation. Breath sounds equal bilaterally. GASTROINTESTINAL: Abdomen soft, non-tender, nondistended. Normoactive bowel sounds x4. MUSCULOSKELETAL: No obvious deformities. Extremities without clubbing, cyanosis , or edema. Diffuse lumbar paraspinous muscle tenderness to palpation, worse on the right, without any cervical/thoracic/lumbar bony point tenderness. NEUROLOGICAL: Awake and alert. No obvious cranial nerve deficits. 5/5 strength bilateral upper and lower extremities, although right hip flexion against resistance elicits pain. Normal speech. PSYCHIATRIC: Appropriate mood and affect; insight and judgment normal. Results - Labs CBC & Chem 7: 02/07/18 07:05 02/07/18 07:05 - Imaging Impressions Lumbar Spine CT 02/05/18 17:12 CONCLUSION: 1. No acute fracture or subluxation of the lumbar spine. 2. Mild to moderate, chronic compression deformity of L3 vertebral body. 3. Broad right paracentral/foraminal protrusion with moderate right foraminal stenosis at L3/L4. 4. Mild bilateral foraminal stenosis at L4/L5 and L5/S1. 5. No significant spinal stenosis demonstrated. Thoracic Spine CT 02/05/18 17:12 CONCLUSION: 1. Intact cervical spine. 2. Scoliosis and mild disc centered degenerative changes as above. No high- grade foraminal or spinal stenosis present. Hip X-Ray 02/05/18 21:22 CONCLUSION: 1. No acute abnormality seen of the right hip. 2. Previous nail and rodding of the right femur. Healed proximal shaft fracture. Femur CT 02/08/18 00:00 CONCLUSION: 1. Old healed fracture through the midshaft of the right femur. 2. The hardware is grossly intact. 3. Otherwise, unremarkable examination. Assessment and Plan - Plan 73-year-old female with a past medical history significant for chronic kidney disease, history of renal transplant, hypertension and hyperlipidemia presents to the emergency department for evaluation of back pain. Lumbar strain/intractable back pain/inability to ambulate: Acute, suspect secondary to overuse, patient recently lifting and moving boxes, process of relocating her home. -CT thoracic reviewed, shows scoliosis and mild disc centered degenerative changes as above. No high-grade foraminal or spinal stenosis present. -CT lumbar show no acute fracture, mild-moderate chronic compression deformity of L3, Broad right paracentral/foraminal protrusion with moderate right foraminal stenosis at L3/L4, Mild bilateral foraminal stenosis at L4/L5 and L5/S1. No significant spinal stenosis demonstrated. -CT right hip/femur shows old healed fracture through midshaft femur, hardware intact, otherwise unremarkable -Right hip xray reviewed, no acute findings, previous nail/rodding of right femur -Avoid NSAIDs with history of renal transplant -Continue muscle relaxer with Flexeril as needed -Pain control with tramadol as needed -Started on trial of steroids with prednisone 20 mg daily x3 days -K thermia pad -Physical therapy consulted, recommending rehab, difficult with placement due to insurance barriers -Consult rehab medicine physician, consider admission to [facility] -Instructed the patient to f/up with her orthopedic physician Dr. Eduardo if symptoms persist after discharge UTI: UA with leuks and WBCs -continue Macrobid [place] [address]55 K mixed pranav, probable contaminants -Will discontinue antibiotics, patient asymptomatic CKD stage III with hx of renal transplant: chronic. Cr 1.42, appears at baseline -continue patient's cyclosporine and prednisone -avoid nephrotoxins Hypertension/Hyperlipidemia: chronic -Continue patient's losartan and metoprolol -monitor BP, add antihypertensives as needed DVT Prophylaxis: Heparin sq Discharge Planning: Not yet ready for discharge. PT recommending rehab however difficulty with placement due to insurance barriers. Continue daily PT. Patient slowly improving. Hoping to send home with [facility] if rehab is not approved, however not safe discharge at this time as patient has multiple stairs to get into home. Await rehab medicine evaluation.
[2018-02-09] MEDS: Senna/Docusate Sodium 8.6/50 MG Tablet PO SCH ×2 (10:21→20:42)
[2018-02-09] MEDS: Sodium Chloride 0.9% 2 ML Flush BID IV.FLUSH SCH ×2 (10:22→20:42)
[2018-02-09] MEDS: predniSONE 20 MG Tablet PO SCH (10:22)
[2018-02-09] MEDS: predniSONE 5 MG Tablet PO SCH (10:22)
[2018-02-09] MEDS: Metoprolol Tartrate 25 MG Tablet PO SCH (14:40)
[2018-02-10] MEDS: Heparin - SQ 10,000 UNITS/ML Vial SQ SCH ×3 (01:42→17:41)
[2018-02-10] MEDS: predniSONE 5 MG Tablet PO SCH (08:40)
[2018-02-10] MEDS: Senna/Docusate Sodium 8.6/50 MG Tablet PO SCH ×2 (08:40→21:49)
[2018-02-10] MEDS: Metoprolol Tartrate 25 MG Tablet PO SCH (08:40)
[2018-02-10] MEDS: predniSONE 20 MG Tablet PO SCH (08:40)
[2018-02-10] MEDS: Sodium Chloride 0.9% 2 ML Flush BID IV.FLUSH SCH ×2 (08:41→21:43)
[2018-02-10 11:04] LABS: Baso % (Auto) 0.4 % (0.0-2.0); Eos % (Auto) 0.2 % (0.0-4.0); Hematocrit 35.8 % (35.0-46.0); Hemoglobin 11.6 gm/dL (11.6-15.3); Lymph # (Auto) 0.8 th/mm3 (1.0-4.8); Lymph % (Auto) 7.5 % (9.0-44.0); Mean Corpuscular HGB Conc 32.3 % (32.0-36.0); Mean Corpuscular Hemoglobin 29.3 pg (27.0-34.0); Mean Corpuscular Volume 90.8 fL (80.0-100.0); Mean Platelet Volume 7.9 fL (7.0-11.0); Mono # (Auto) 0.6 th/mm3 (0.0-0.9); Mono % (Auto) 5.3 % (0.0-8.0); Neut # (Auto) 9.7 th/mm3 (1.8-7.7); Neut % (Auto) 86.6 % (16.0-70.0); Platelet Count 257 th/mm3 (150-450); Red Blood Count 3.95 mil/mm3 (4.00-5.30); Red Cell Distribution Width 18.6 % (11.6-17.2); White Blood Count 11.2 th/mm3 (4.0-11.0)
[2018-02-10 11:33] LABS: Calcium 9.6 mg/dL (8.5-10.1); Carbon Dioxide 30.2 meq/L (21.0-32.0); Potassium 5.2 meq/L (3.5-5.1)
--- NOTE | 2018-02-10 16:14 | P.PN ---
Subjective Interval history: Patient is seen sitting up on side of bed. Continues to complain of low back pain which radiates to right thigh. She continues to express concerns about going home due to her stairs and the fact that there is no one there to help her. Physical Exam Vital signs: Vital Signs 02/09/18 20:00 02/10/18 00:00 02/10/18 04:00 Temperature 97.9 F 98.3 F 98.4 F Pulse Rate 61 60 56 L Respiratory Rate 16 16 16 Blood Pressure 148/78 H 141/78 H 176/91 H Pulse Oximetry 95 93 L 95 02/10/18 07:10 02/10/18 11:30 02/10/18 16:02 Temperature 97.8 F 98.0 F 98.3 F Pulse Rate 61 68 60 Respiratory Rate 18 Blood Pressure 137/81 142/78 H 151/84 H Pulse Oximetry 95 96 96 Intake & Output 02/09/18 02/10/18 02/10/18 18:59 06:59 18:59 Intake Total 360 / 360 420 / 420 Output Total 600 / 600 600 / 600 Balance -240 / -240 -180 / -180 Intake: Oral 360 / 360 420 / 420 Output: Urine 600 / 600 600 / 600 Other: # Voids 3 1 Date of Last Bowel Movement 02/08/18 Narrative: GENERAL: Well-nourished, well-developed pleasant elderly female patient in [facility]. SKIN: Warm and dry. No rash. HEENT: Normocephalic. Atraumatic. Pupils equal and round. Mucous membranes pink and moist. CARDIOVASCULAR: Regular rate and rhythm. No murmur appreciated. RESPIRATORY: No accessory muscle use. Clear to auscultation. Breath sounds equal bilaterally. GASTROINTESTINAL: Abdomen soft, non-tender, nondistended. Normoactive bowel sounds x4. MUSCULOSKELETAL: No obvious deformities. Extremities without clubbing, cyanosis , or edema. Diffuse lumbar paraspinous muscle tenderness to palpation, worse on the right, without any cervical/thoracic/lumbar bony point tenderness. NEUROLOGICAL: Awake and alert. No obvious cranial nerve deficits. 5/5 strength bilateral upper and lower extremities, although right hip flexion against resistance elicits pain. Normal speech. PSYCHIATRIC: Appropriate mood and affect; insight and judgment normal. Results - Labs CBC & Chem 7: 02/10/18 10:14 02/10/18 10:44 Laboratory Results - last 24 hr 02/10/18 02/10/18 10:14 10:44 WBC 11.2 H RBC 3.95 L Hgb 11.6 Hct 35.8 MCV 90.8 MCH 29.3 MCHC 32.3 RDW 18.6 H Plt Count 257 MPV 7.9 Neut % (Auto) 86.6 H Lymph % (Auto) 7.5 L [place] % (Auto) 5.3 Eos % (Auto) 0.2 Baso % (Auto) 0.4 Neut # (Auto) 9.7 H Lymph # (Auto) 0.8 L [place] # (Auto) 0.6 Eos # (Auto) 0.0 Baso # (Auto) 0.0 WBC Differential . Differential Comment Auto diff final Sodium 140 Potassium 5.2 H Chloride 103 Carbon Dioxide 30.2 Anion Gap 7 BUN 49 H Creatinine 1.45 H Estimated GFR 35 L Random Glucose 87 Calcium 9.6 Assessment and Plan - Plan 73-year-old female with a past medical history significant for chronic kidney disease, history of renal transplant, hypertension and hyperlipidemia presents to the emergency department for evaluation of back pain. Lumbar strain/intractable back pain/inability to ambulate: Acute, suspect secondary to overuse, patient recently lifting and moving boxes, process of relocating her home. -CT thoracic reviewed, shows scoliosis and mild disc centered degenerative changes as above. No high-grade foraminal or spinal stenosis present. -CT lumbar show no acute fracture, mild-moderate chronic compression deformity of L3, Broad right paracentral/foraminal protrusion with moderate right foraminal stenosis at L3/L4, Mild bilateral foraminal stenosis at L4/L5 and L5/S1. No significant spinal stenosis demonstrated. -CT right hip/femur shows old healed fracture through midshaft femur, hardware intact, otherwise unremarkable -Right hip xray reviewed, no acute findings, previous nail/rodding of right femur -Avoid NSAIDs with history of renal transplant -Continue muscle relaxer with Flexeril as needed -Pain control with tramadol as needed -Started on trial of steroids with prednisone 20 mg daily x3 days -K thermia pad -Physical therapy consulted, recommending rehab, difficult with placement due to insurance barriers. Patient can climb stairs per physical therapy however patient remains very fearful. -Consult rehab medicine physician, consider admission to [facility] -Instructed the patient to f/up with her orthopedic physician Dr. Eduardo if symptoms persist after discharge UTI: UA with leuks and WBCs -continue Macrobid [place] [id number] K mixed pranav, probable contaminants -Will discontinue antibiotics, patient asymptomatic CKD stage III with hx of renal transplant: chronic. Cr 1.42, appears at baseline -continue patient's cyclosporine and prednisone -avoid nephrotoxins Hypertension/Hyperlipidemia: chronic -Continue patient's losartan and metoprolol -monitor BP, add antihypertensives as needed DVT Prophylaxis: Heparin sq
[2018-02-11] MEDS: Heparin - SQ 10,000 UNITS/ML Vial SQ SCH ×2 (02:21→09:47)
[2018-02-11 07:50] VITALS: RESP 16
[2018-02-11] MEDS: predniSONE 5 MG Tablet PO SCH (09:47)
[2018-02-11] MEDS: Senna/Docusate Sodium 8.6/50 MG Tablet PO SCH (09:48)
[2018-02-11] MEDS: Sodium Chloride 0.9% 2 ML Flush BID IV.FLUSH SCH (09:48)
[2018-02-11] MEDS: Metoprolol Tartrate 25 MG Tablet PO SCH (09:48)
[2018-02-11 11:28] VITALS: BP 130/73; PULSE 66; TEMP 98.8; O2SAT 94
--- NOTE | 2018-02-11 12:46 | P.PN ---
Subjective Interval history: Patient seen lying in bed. She reports that her pain is somewhat better. She has been able to get up out of bed and ambulate to the bathroom without assistance. No dizziness or syncope. No chest pain or shortness of breath. No nausea vomiting or diarrhea. Patient is later observed from nursing station putting on her shoes and moving about room without assistance. She does use a walker for stability. Physical Exam Vital signs: Vital Signs 02/10/18 16:02 02/10/18 20:00 02/11/18 00:00 Temperature 98.3 F 98.4 F 97.6 F Pulse Rate 60 66 56 L Respiratory Rate 18 Blood Pressure 151/84 H 156/82 H 130/77 Pulse Oximetry 96 93 L 95 02/11/18 04:00 02/11/18 07:47 02/11/18 11:27 Temperature 97.6 F 97.5 F L 98.8 F Pulse Rate 56 L 68 66 Respiratory Rate Blood Pressure 154/82 H 146/86 H 130/73 Pulse Oximetry 98 96 94 L Intake & Output 02/10/18 02/11/18 02/11/18 18:59 06:59 18:59 Intake Total 360 / 360 Output Total 600 / 600 Balance -600 / -600 360 / 360 Intake: Oral 360 / 360 Output: Urine 600 / 600 Other: # Voids 1 3 Date of Last Bowel Movement 02/10/18 02/10/18 Narrative: GENERAL: Well-nourished, well-developed pleasant elderly female patient in [facility]. SKIN: Warm and dry. No rash. HEENT: Normocephalic. Atraumatic. Pupils equal and round. Mucous membranes pink and moist. CARDIOVASCULAR: Regular rate and rhythm. No murmur appreciated. RESPIRATORY: No accessory muscle use. Clear to auscultation. Breath sounds equal bilaterally. GASTROINTESTINAL: Abdomen soft, non-tender, nondistended. Normoactive bowel sounds x4. MUSCULOSKELETAL: No obvious deformities. Extremities without clubbing, cyanosis , or edema. Diffuse lumbar paraspinous muscle tenderness to palpation, worse on the right, without any cervical/thoracic/lumbar bony point tenderness. NEUROLOGICAL: Awake and alert. No obvious cranial nerve deficits. 5/5 strength bilateral upper and lower extremities, although right hip flexion against resistance elicits pain. Normal speech. PSYCHIATRIC: Appropriate mood and affect; insight and judgment normal. Results - Labs CBC & Chem 7: 02/10/18 10:14 02/10/18 10:44 Assessment and Plan - Plan 73-year-old female with a past medical history significant for chronic kidney disease, history of renal transplant, hypertension and hyperlipidemia presents to the emergency department for evaluation of back pain. Lumbar strain/intractable back pain/inability to ambulate: Acute, suspect secondary to overuse, patient recently lifting and moving boxes, process of relocating her home. -Imaging shows no acute injury -Avoid NSAIDs with history of renal transplant -Continue muscle relaxer with Flexeril as needed -Pain control with tramadol as needed -Started on trial of steroids with prednisone 20 mg daily x3 days -K thermia pad -Patient can climb stairs per physical therapy however patient remains very fearful. -Instructed the patient to f/up with her orthopedic physician Dr. Eduardo if symptoms persist after discharge UTI: UA with leuks and WBCs -continue Macrobid [place] [address]54 K mixed pranav, probable contaminants -Will discontinue antibiotics, patient asymptomatic CKD stage III with hx of renal transplant: chronic. Cr 1.42, appears at baseline -continue patient's cyclosporine and prednisone -avoid nephrotoxins Hypertension/Hyperlipidemia: chronic -Continue patient's losartan and metoprolol -monitor BP, add antihypertensives as needed DVT Prophylaxis: Heparin sq
--- NOTE | 2018-02-11 12:51 | P.DS ---
Date of admission: 02/05/18 23:40 Primary care physician: Maine Li MD Attending physician on discharge: Shannon Westbrook Anticipated date of discharge: 02/11/18 Brief History from admission: 73-year-old female with a past medical history significant for chronic kidney disease, history of renal transplant, hypertension and hyperlipidemia presents to the emergency department for evaluation of back pain. The patient reports that she has been moving from her current residence and has been packing boxes and lifting and carrying heavy objects. She states she has had severe lower back pain that has worsened to the point where she cannot bear weight on her right leg. She is able to move her extremities without difficulty and has 5/5 strength throughout in the bilateral lower extremities. She denies any bowel or bladder incontinence. No chest pain or shortness of breath. No abdominal pain. No nausea/vomiting/diarrhea. No lateralizing signs/symptoms other than pain. No fever/chills. DS: Diagnosis - Discharge Diagnosis (1) Intractable back pain Status: Resolved (2) Strain of lumbar region Status: Acute DS: Medications - Discharge Medications Prescriptions: cyclobenzaprine 5 mg PO Q8H PRN #30 tab PRN Reason: muscle spasms tramadol [Ultram] 50 mg PO Q6H PRN #12 tab PRN Reason: Acute Pain DS: Summary Hospital Course: 73-year-old female with a past medical history significant for chronic kidney disease, history of renal transplant, hypertension and hyperlipidemia presents to the emergency department for evaluation of back pain. Lumbar strain/ intractable back pain/inability to ambulate: Acute, suspect secondary to overuse , patient recently lifting and moving boxes, process of relocating her home. Imaging shows no acute injury No NSAIDs with history of renal transplant. Pain improved with Flexeril and tramadol. Short course of prednisone for inflammation. Instructed the patient to f/up with her orthopedic physician Dr. Eduardo if symptoms persist after discharge. - Time Spent with Patient Total time spent providing and/or coordinating discharge services: Less than 30 minutes - Quality: VTE Deep Vein Thrombosis/Pulmonary Embolism Present on Admission: No Exam Vital signs: Vital Signs 02/10/18 16:02 02/10/18 20:00 02/11/18 00:00 Temperature 98.3 F 98.4 F 97.6 F Pulse Rate 60 66 56 L Respiratory Rate 18 18 18 Blood Pressure 151/84 H 156/82 H 130/77 Pulse Oximetry 96 93 L 95 02/11/18 04:00 02/11/18 07:47 02/11/18 11:27 Temperature 97.6 F 97.5 F L 98.8 F Pulse Rate 56 L 68 66 Respiratory Rate 18 16 16 Blood Pressure 154/82 H 146/86 H 130/73 Pulse Oximetry 98 96 94 L Intake & Output 02/10/18 02/11/18 02/11/18 18:59 06:59 18:59 Intake Total 360 / 360 Output Total 600 / 600 Balance -600 / -600 360 / 360 Intake: Oral 360 / 360 Output: Urine 600 / 600 Other: # Voids 1 3 Date of Last Bowel Movement 02/10/18 02/10/18 Narrative: GENERAL: Well-nourished, well-developed pleasant elderly female patient in [facility]. SKIN: Warm and dry. No rash. HEENT: Normocephalic. Atraumatic. Pupils equal and round. Mucous membranes pink and moist. CARDIOVASCULAR: Regular rate and rhythm. No murmur appreciated. RESPIRATORY: No accessory muscle use. Clear to auscultation. Breath sounds equal bilaterally. GASTROINTESTINAL: Abdomen soft, non-tender, nondistended. Normoactive bowel sounds x4. MUSCULOSKELETAL: No obvious deformities. Extremities without clubbing, cyanosis , or edema. Diffuse lumbar paraspinous muscle tenderness to palpation, worse on the right, without any cervical/thoracic/lumbar bony point tenderness. NEUROLOGICAL: Awake and alert. No obvious cranial nerve deficits. 5/5 strength bilateral upper and lower extremities, although right hip flexion against resistance elicits pain. Normal speech. PSYCHIATRIC: Appropriate mood and affect; insight and judgment normal. Results Procedures completed during hospitalization: none - Impressions ITS Impressions Lumbar Spine CT 02/05/18 17:12 CONCLUSION: 1. No acute fracture or subluxation of the lumbar spine. 2. Mild to moderate, chronic compression deformity of L3 vertebral body. 3. Broad right paracentral/foraminal protrusion with moderate right foraminal stenosis at L3/L4. 4. Mild bilateral foraminal stenosis at L4/L5 and L5/S1. 5. No significant spinal stenosis demonstrated. Thoracic Spine CT 02/05/18 17:12 CONCLUSION: 1. Intact cervical spine. 2. Scoliosis and mild disc centered degenerative changes as above. No high- grade foraminal or spinal stenosis present. Hip X-Ray 02/05/18 21:22 CONCLUSION: 1. No acute abnormality seen of the right hip. 2. Previous nail and rodding of the right femur. Healed proximal shaft fracture. Femur CT 02/08/18 00:00 CONCLUSION: 1. Old healed fracture through the midshaft of the right femur. 2. The hardware is grossly intact. 3. Otherwise, unremarkable examination. Discharge Plan - Discharge Disposition Patient Disposition: /Home Health Service - Discharge Condition Condition: Stable - Discharge Order Discharge Orders: Discharge Order (Routine); Ordered 02/11/18 Ordered By: Dali Benitez - Physicians Team Primary Care Provider: Maine Li Attending Provider: Shannon Westbrook Other Providers: Breezy Luna MD
== END 2018-02-11 13:04 | disposition home health service (06) ==
LOC: NEPD 16:30 → NEDA 16:30 → NEPHCDU 02-06 00:52
PROVIDERS: ADMIT Internal Medicine; ATTEND Internal Medicine